=== PATIENT | female | born 1990 | race Caucasian/White ===

== ENCOUNTER 2021-01-13 09:00 | Emergency (ER) | payer BC, OTHER ==
[2021-01-13 09:17] VITALS: BP 105/67; PULSE 73; TEMP 97; BMI 34.7
== END 2021-01-13 10:15 | disposition home or self-care (01) ==
LOC: JER 09:00
DX: Z01.419 Encounter for gynecological examination (general) (routine) without abnormal findings (principal)
CPT/HCPCS: 99281-25